=== PATIENT | male | born 1970 | race Caucasian/White ===

== ENCOUNTER → 2018-01-06 | Outpatient (CLI) | payer BC, OTHER ==
[~2018-01-06] MED LIST: PRILOSEC 20 MG20 MG PO; ZANTAC 150MG T150 M1 PO
== END ==
LOC: ULTRA 06:50
DX: R10.11 Right upper quadrant pain (principal)

== ENCOUNTER 2018-08-12 02:18 | Inpatient (IN) | payer OTHER ==
[2018-08-12] VITALS (7 sets, daily range): BP systolic 117–140; BP diastolic 67–93
[~2018-08-12] VITALS: Ht 193 cm; Wt 72.6 kg
[2018-08-12] MEDS ORDERED: ATIVAN0.5 MG PO (02:36)
[2018-08-12 02:53] LABS: HEMOGLOBIN 13.9 gm/dL (14.0-18.0); MCHC 33.8 g/dL (28.0-37.0); MCV 97.7 fL (80.0-100.0); RBC 4.2 mil/uL (4.50-6.00); RDW 14.6 % (10.5-14.5); WBC 4.9 thou/uL (4.0-11.0)
[2018-08-12 02:56] LABS: CALCIUM 9.5 mg/dL (8.5-10.1); CREATININE 0.8 mg/dL (0.7-1.3); POTASSIUM 3.9 mmol/L (3.5-5.1)
[2018-08-12 03:02] LABS: ALBUMIN 3.8 g/dL (3.4-5.0); TOTAL BILIRUBIN 0.3 mg/dL (<0.1-1.0); TOTAL PROTEIN 7.7 g/dL (6.4-8.2)
[2018-08-13 02:33] VITALS: BP 134/87
[2018-08-13 07:36] VITALS: BP 135/82
[2018-08-13 10:10] LABS: AMP/METHAMP Negative (Negative); BARBITURATES Negative (Negative); BENZODIAZEPINES POSITIVE (Negative); COCAINE Negative (Negative); METHADONE Negative (Negative); OPIATES POSITIVE (Negative); PCP Negative (Negative)
[2018-08-13 11:19] VITALS: BP 126/89
[2018-08-13] MEDS ORDERED: VITAMIN B-1100 M2 PO (14:30)
[2018-08-13 15:16] VITALS: BP 126/89
== END 2018-08-13 15:43 | disposition home or self-care (01) | DRG 439 ==
LOC: ER 02:18 → EROBS 03:43 → 3W 03:43 → EROBS 03:43 → 3W 04:27
PROVIDERS: Emergency Medicine; Nurse Practitioner Acute Care
DX: K85.20 Alcohol induced acute pancreatitis without necrosis or infection (principal); F10.239 Alcohol dependence with withdrawal, unspecified; K21.9 Gastro-esophageal reflux disease without esophagitis; F12.90 Cannabis use, unspecified, uncomplicated; F17.210 Nicotine dependence, cigarettes, uncomplicated; F41.9 Anxiety disorder, unspecified; F32.9 Major depressive disorder, single episode, unspecified; Z79.899 Other long term (current) drug therapy
CPT/HCPCS: 10879

== ENCOUNTER 2018-08-29 00:28 | Emergency (ER) | payer OTHER ==
[~2018-08-29] VITALS: Ht 193 cm; Wt 77.1 kg
[~2018-08-29 00:28] MED LIST changes: +ATIVAN0.5 MG PO; +VITAMIN B-1100 M2 PO
[2018-08-29 01:01] LABS: HEMATOCRIT 43.3 % (42.0-52.0); HEMOGLOBIN 14.9 gm/dL (14.0-18.0); MCH 33.9 pg (26.0-34.0); MCHC 34.3 g/dL (28.0-37.0); MCV 98.7 fL (80.0-100.0); PLATELET COUNT 339 thou/uL (150-400); RBC 4.39 mil/uL (4.50-6.00); RDW 14.9 % (10.5-14.5); WBC 4.8 thou/uL (4.0-11.0)
[2018-08-29 01:03] LABS: CALCIUM 8.8 mg/dL (8.5-10.1); CREATININE 0.7 mg/dL (0.7-1.3); POTASSIUM 3.9 mmol/L (3.5-5.1)
[2018-08-29 01:09] LABS: ALBUMIN 3.8 g/dL (3.4-5.0); TOTAL BILIRUBIN 0.4 mg/dL (<0.1-1.0); TOTAL PROTEIN 7.3 g/dL (6.4-8.2)
[2018-08-29 01:58] LABS: ABSOLUTE NEUTROPHILS 2.2 thou/uL (1.4-8.2); ATYPICAL LYMPHS 3 %
[2018-08-29] MEDS ORDERED: ZOFRAN4 MG PO (04:18)
[2018-08-29] MEDS ORDERED: CARAFATE 1 GM TA1 G1 PO (04:18)
[2018-08-29] MEDS ORDERED: PROTONIX40 M1 PO (04:18)
[2018-08-29] MEDS ORDERED: NORCO 5-325 TA1 EACH PO (04:18)
[2018-08-29 04:34] VITALS: BP 118/65
== END 2018-08-29 04:35 | disposition home or self-care (01) ==
LOC: ER 00:28
PROVIDERS: Emergency Medicine
DX: K29.00 Acute gastritis without bleeding (principal); K21.9 Gastro-esophageal reflux disease without esophagitis; F41.9 Anxiety disorder, unspecified; F17.210 Nicotine dependence, cigarettes, uncomplicated

== ENCOUNTER 2018-10-23 03:54 | Emergency (ER) | payer OTHER ==
[~2018-10-23] VITALS: Ht 193 cm; Wt 72.6 kg
[~2018-10-23 03:54] MED LIST changes: +CARAFATE 1 GM TA1 G1 PO; +NORCO 5-325 TA1 EACH PO; +PROTONIX40 M1 PO; +ZOFRAN4 MG PO
[2018-10-23 04:22] LABS: BASOPHILS 1.3 % (0.0-2.0); EOSINOPHILS 0.4 % (0.0-3.0); HEMATOCRIT 38.5 % (42.0-52.0); LYMPHOCYTES 27.4 % (24.0-44.0); MCH 33.3 pg (26.0-34.0); MCHC 33.7 g/dL (28.0-37.0); MCV 98.9 fL (80.0-100.0); MONOCYTES 8.2 % (1.0-8.0); PLATELET COUNT 407 thou/uL (150-400); POLYS 62.7 % (36.0-66.0); RBC 3.89 mil/uL (4.50-6.00); RDW 14.4 % (10.5-14.5); WBC 4.8 thou/uL (4.0-11.0)
[2018-10-23 04:26] LABS: ANION GAP 13 mmol/L (7-16); BUN 8 mg/dL (7-18); CALCIUM 8.6 mg/dL (8.5-10.1); CHLORIDE 102 mmol/L (98-107); CO2 24 mmol/L (21-32); CREATININE 0.7 mg/dL (0.7-1.3); GLUCOSE 175 mg/dL (74-106); POTASSIUM 3.4 mmol/L (3.5-5.1); SODIUM 139 mmol/L (136-145)
[2018-10-23 04:32] LABS: ALBUMIN 3.4 g/dL (3.4-5.0); DIRECT BILIRUBIN < 0.1 mg/dL (<0.1-0.3); LIPASE 522 U/L (73-393); SGOT 31 U/L (15-37); SGPT 21 U/L (30-65); TOTAL BILIRUBIN 0.2 mg/dL (<0.1-1.0); TOTAL PROTEIN 6.9 g/dL (6.4-8.2)
[2018-10-23] MEDS ORDERED: ACETAMINOPHEN-1 EAC1 PO (05:12)
[2018-10-23] MEDS ORDERED: PRILOSEC 20 MG20 MG PO (05:12)
[2018-10-23] MEDS ORDERED: ATIVAN1 MG PO (05:12)
[2018-10-23] MEDS ORDERED: ZOFRAN ODT4 MG DISSOLVE (05:12)
[2018-10-23 05:14] LABS: URINE BILIRUBIN NEGATIVE (Negative); URINE BLOOD NEGATIVE (Negative); URINE CLARITY CLEAR; URINE COLOR YELLOW; URINE GLUCOSE-RANDOM* NEGATIVE (Negative); URINE KETONES 1+ (Negative); URINE LEUKOCYTES NEGATIVE (Negative); URINE NITRITE NEGATIVE (Negative); URINE PROTEIN (DIPSTICK) TRACE (Negative); URINE SPECIFIC GRAVITY >= 1.030 (1.005-1.035); URINE UROBILINOGEN 0.2 E.U./dl (0.2-1.0)
[2018-10-23 05:18] LABS: AMP/METHAMP Negative (Negative); BARBITURATES Negative (Negative); BENZODIAZEPINES Negative (Negative); COCAINE Negative (Negative); METHADONE Negative (Negative); OPIATES POSITIVE (Negative); PCP Negative (Negative)
[2018-10-23 05:25] VITALS: BP 135/87
== END 2018-10-23 05:32 | disposition home or self-care (01) ==
LOC: ER 03:54
PROVIDERS: Emergency Medicine
DX: K85.90 Acute pancreatitis without necrosis or infection, unspecified (principal); F41.9 Anxiety disorder, unspecified; F10.10 Alcohol abuse, uncomplicated; Y90.5 Blood alcohol level of 100-119 mg/100 ml; M41.9 Scoliosis, unspecified; K21.9 Gastro-esophageal reflux disease without esophagitis; F17.210 Nicotine dependence, cigarettes, uncomplicated; Z79.899 Other long term (current) drug therapy

== ENCOUNTER 2018-10-26 09:09 | Inpatient (IN) | payer OTHER ==
[2018-10-26] VITALS (46 sets, daily range): BP systolic 68–127; BP diastolic 36–83
[~2018-10-26] VITALS: Ht 193 cm; Wt 70.3 kg
[~2018-10-26 09:09] MED LIST changes: +ACETAMINOPHEN-1 EAC1 PO; +ATIVAN1 MG PO; +ZOFRAN ODT4 MG DISSOLVE
[2018-10-26 09:21] LABS: ABSOLUTE NEUTROPHILS 7.4 thou/uL (1.4-8.2); BASOPHILS 0.4 % (0.0-2.0); EOSINOPHILS 0.4 % (0.0-3.0); HEMATOCRIT 38.1 % (42.0-52.0); HEMOGLOBIN 12.8 gm/dL (14.0-18.0); LYMPHOCYTES 17.2 % (24.0-44.0); MCH 34.3 pg (26.0-34.0); MCHC 33.6 g/dL (28.0-37.0); MCV 102.1 fL (80.0-100.0); MONOCYTES 10.8 % (1.0-8.0); PLATELET COUNT 258 thou/uL (150-400); POLYS 71.2 % (36.0-66.0); RBC 3.73 mil/uL (4.50-6.00); RDW 14.4 % (10.5-14.5); WBC 10.4 thou/uL (4.0-11.0)
[2018-10-26 09:30] LABS: ANION GAP 21 mmol/L (7-16); BUN 11 mg/dL (7-18); CALCIUM 9.6 mg/dL (8.5-10.1); CHLORIDE 97 mmol/L (98-107); CO2 16 mmol/L (21-32); CREATININE 1.6 mg/dL (0.7-1.3); GLUCOSE 173 mg/dL (74-106); POTASSIUM 3.9 mmol/L (3.5-5.1); SODIUM 134 mmol/L (136-145)
[2018-10-26 09:39] LABS: ALBUMIN 3.8 g/dL (3.4-5.0); SGOT 40 U/L (15-37); SGPT 27 U/L (30-65); TOTAL BILIRUBIN 0.6 mg/dL (<0.1-1.0); TOTAL PROTEIN 7.1 g/dL (6.4-8.2); TROPONIN-I <0.06 ng/mL (<0.06)
--- NOTE | 2018-10-26 09:50 | EKG ---
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 : 1970 Requested By: Viki Up Order Number: [id number] MD: Efren Jenkins Measurements Intervals [place] Rate: 165 P: ID: QRS: 64 QRSD: 81 T: 31 QT: 288 QTc: 477 Interpretive Statements Atrial fibrillation RSR' in V1 or V2, right VCD ST depression, probably rate related Borderline prolonged QT interval Compared to ECG 08/08/2010 16:04:35 atrial fibrillation has replaced sinus rhythm Electronically Signed On 10-26-2018 9:49:56 PHYSICAL THERAPY INSTRUCTOR by Efren Jenkins [email or web address] ��������������������������������������������� <ELECTRONICALLY SIGNED> ���������������������������������������� By: Efren Jenkins MD, [facility] ��������������������������������������������� 10/26/18 0949 3 3 Efren Jenkins MD, [facility] /EPI
[2018-10-26 10:48] LABS: URINE BILIRUBIN NEGATIVE (Negative); URINE BLOOD NEGATIVE (Negative); URINE CLARITY CLEAR; URINE COLOR YELLOW; URINE GLUCOSE-RANDOM* NEGATIVE (Negative); URINE KETONES TRACE (Negative); URINE LEUKOCYTES-REFLEX NEGATIVE (Negative); URINE NITRITE-REFLEX NEGATIVE (Negative); URINE PROTEIN (DIPSTICK) NEGATIVE (Negative); URINE UROBILINOGEN 0.2 E.U./dl (0.2-1.0)
[2018-10-26 10:59] LABS: AMP/METHAMP Negative (Negative); BARBITURATES Negative (Negative); BENZODIAZEPINES Negative (Negative); COCAINE Negative (Negative); METHADONE Negative (Negative); OPIATES Negative (Negative); PCP Negative (Negative)
[2018-10-26 13:47] LABS: FOLIC ACID 14.2 ng/mL (8.6-58.9)
--- NOTE | 2018-10-26 15:39 | 2DMMODE ---
[facility] [employer] [address] 2 D/M-MODE ECHOCARDIOGRAM Name: LAKSHMI WEI Room #: 243-P [facility] IN ..#: [id number] ������������� Admission: 10/26/18 ������������� Attend Phys: Kp Pressley, Discharge: ��� ������������� ��� Date of : 66 Date of Service: 10/26/18 1539 �� Report #: [id number] �������� ��������������������������������������������[id number] THIS REPORT FOR: //name// APPROVED REPORT Study performed: 10/26/2018 14:49:43 EXAM: Comprehensive 2D, Doppler, and color-flow Echocardiogram Patient Location: ICU Status: routine BSA: 1.91 HR: 243 bpm BP: 97/61 mmHg Rhythm: Atrial Fibrillation Other Information Study Quality: Adequate Indications Atrial Fibrillation Left Ventricle The left ventricle is normal size. Regional wall motion is not well visualized but grossly normal. There is normal left ventricular wall thickness. The left ventricular systolic function is normal. The left ventricular ejection fraction is within the normal range. LVEF is 55-60%. Right Ventricle The right ventricle is normal size. The right ventricular systolic function is normal. Atria The left atrium size is normal. The right atrium size is normal. Aortic Valve The aortic valve is not well visualized, mildly calcified. Mitral Valve The mitral valve is normal in structure. Tricuspid Valve The tricuspid valve is normal in structure. [facility] [place] [address] 2 D/M-MODE ECHOCARDIOGRAM Name: LAKSHMI WEI Room #: 243-P ADM IN M.R.#: [id number] ������������� Admission: 10/26/18 ������������� Attend Phys: Kp Pressley, Discharge: ��� ������������� ��� Date of : 66 Date of Service: 10/26/18 1539 �� Report #: [id number] �������� ��������������������������������������������[id number] Pulmonic Valve Pulmonic valve is not well visualized. Great Vessels The aortic root is normal in size. The inferior vena cava is not well visualized. Pericardium There is no pericardial effusion. <Conclusion> Limited and abbreviated study The left ventricular systolic function is normal. LVEF is 55-60%. The aortic valve is not well visualized, mildly calcified. The mitral valve is normal in structure. There is no pericardial effusion. ��������������������������������������������� <ELECTRONICALLY SIGNED> ���������������������������������������� By: Efren Jenkins MD, FACC ��������������������������������������������� 10/26/18 1539 38 38 Efren Jenkins MD, FACC /INF
--- NOTE | 2018-10-26 19:51 | NUR ---
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 ON ROOM AIR, TOLERATING DIET. CIWA AND BLOOD SUGARS MONITORED. PATIENT UPDATED ON THE PLAN OF CARE. NO SIGNS OF ACUTE DISTRESS NOTED AT THIS TIME. WILL CONTINUE TO MONITOR.
[2018-10-27] VITALS (43 sets, daily range): BP systolic 92–140; BP diastolic 56–96
[2018-10-27 00:08] LABS: GLYCOHEMOGLOBIN (HGB A1C) 5.6 % (4.8-5.6)
[2018-10-27 05:15] LABS: ABSOLUTE NEUTROPHILS 2.7 thou/uL (1.4-8.2); BASOPHILS 0.5 % (0.0-2.0); EOSINOPHILS 2.2 % (0.0-3.0); HEMATOCRIT 32.9 % (42.0-52.0); HEMOGLOBIN 11.1 gm/dL (14.0-18.0); LYMPHOCYTES 29.5 % (24.0-44.0); MCH 34.2 pg (26.0-34.0); MCHC 33.7 g/dL (28.0-37.0); MCV 101.6 fL (80.0-100.0); MONOCYTES 8.8 % (1.0-8.0); PLATELET COUNT 189 thou/uL (150-400); RBC 3.24 mil/uL (4.50-6.00); RDW 14.5 % (10.5-14.5); WBC 4.6 thou/uL (4.0-11.0)
--- NOTE | 2018-10-27 05:23 | NUR ---
PT RESTING IN BED. REQUIRED DOSES OF ATIVAN AND PAIN MEDICATION THROUGHOUT SHIFT. PT REMAINS AFIB ON MONITOR. PT AFEBRILE. PT Q4H CIWA DOCUMENTATION AND FOLLOWING PROTOCOL. PT REMAINS ON RA. AM LABS TO BE REVIEWED.
[2018-10-27 05:29] LABS: AMYLASE 57 U/L (25-115); CALCIUM 7.9 mg/dL (8.5-10.1); CHOLESTEROL 142 mg/dL (<200); CREATININE 0.7 mg/dL (0.7-1.3); HDL CHOLESTEROL 43 mg/dL (>40); LDL CHOLESTEROL 80 mg/dL (<100); LIPASE 329 U/L (73-393); MAGNESIUM 1.9 mg/dL (1.8-2.4); POTASSIUM 3.7 mmol/L (3.5-5.1); TC:HDL 3.3 Ratio (Not establshd); TRIGLYCERIDE 98 mg/dL (<150); VLDL 20 mg/dL (<40)
[2018-10-27 05:40] LABS: SERUM ASSESSMENT Clear
--- NOTE | 2018-10-27 08:58 | 2DMMODE ---
[facility] [employer] [place] [address] 2 D/M-MODE ECHOCARDIOGRAM Name: LAKSHMI WEI W Room #: 243-P [facility].#: [id number] ������������� Admission: 10/26/18 ������������� Attend Phys: Kp Pressley, Discharge: ��� ������������� ��� Date of : 66 Date of Service: 10/27/18 0858 �� Report #: [id number] �������� ��������������������������������������������[id number] THIS REPORT FOR: //name// APPROVED REPORT Study performed: 10/27/2018 08:17:32 EXAM: Comprehensive 2D, Doppler, and color-flow Echocardiogram Patient Location: ICU Room #: 243 Status: routine BSA: 1.91 HR: 100 bpm BP: 108/63 mmHg Rhythm: Atrial Fibrillation Other Information Study Quality: Good Indications Atrial Fibrillation 2D Dimensions RVDd: 30.15 mm IVSd: 11.17 (7-11mm) LVOT Diam: 23.55 (18-24mm) LVDd: 45.19 mm PWd: 10.47 (7-11mm) Ascending Ao: 27.63 (22-36mm) LVDs: 32.60 (25-40mm) Aortic Root: 31.86 mm IVC: 18.00 mm Volumes Left Atrial Volume (Systole) Single Plane 4CH: 32.53 mL Single Plane 2CH: 56.96 mL LA ESV Index: 25.00 mL/m2 Aortic Valve AoV Peak Arvin.: 1.16 m/s AO Peak Gr.: 5.39 mmHg LVOT Max P.17 mmHg LVOT Max V: 0.74 m/s JORJE Vmax: 2.76 cm2 Pulmonary Valve PV Peak Arvin.: 0.75 m/s PV Peak Gr.: 2.25 mmHg Left Ventricle [facility] [address] [place] [address] 2 D/M-MODE ECHOCARDIOGRAM Name: LAKSHMI WEI Room [facility]: [facility]#: [id number] ������������� Admission: 10/26/18 ������������� Attend Phys: Kp Pressley, Discharge: ��� ������������� ��� Date of : 66 Date of Service: 10/27/18 0858 �� Report #: [id number] �������� ��������������������������������������������[id number] The left ventricle is normal size. There is normal LV segmental wall motion. There is normal left ventricular wall thickness. Left ventricular systolic function is at the lower limits of normal LVEF is 50%. This study is not technically sufficient to allow evaluation of the LV diastolic function due to atrial fibrillation. Right Ventricle The right ventricle is normal size. The right ventricular systolic function is normal. Atria The left atrium size is normal. The right atrium size is normal. Aortic Valve The aortic valve is normal in structure. Trace to mild aortic regurgitation. There is no aortic valvular stenosis. Mitral Valve The mitral valve is normal in structure. Mild mitral regurgitation. No evidence of mitral valve stenosis. Tricuspid Valve The tricuspid valve is normal in structure. There is no tricuspid valve regurgitation noted. Pulmonic Valve The pulmonary valve is normal in structure. Mild pulmonic regurgitation. Great Vessels The aortic root is normal in size. IVC is normal in size and collapses <50% with inspiration. Pericardium There is no pericardial effusion. <Conclusion> Left ventricular systolic function is at the lower limits of normal LVEF is 50%. The aortic valve is normal in structure. Trace to mild aortic regurgitation, no stenosis. The mitral valve is normal in structure. Mild mitral regurgitation. [facility] [place] [address] 2 D/M-MODE ECHOCARDIOGRAM Name: SANJUANALAKSHMI Room #: 243-P [facility] IN ..#: [id number] ������������� Admission: 10/26/18 ������������� Attend Phys: Kp Pressley, Discharge: ��� ������������� ��� Date of : 66 Date of Service: 10/27/18857 �� Report #: [id number] �������� ��������������������������������������������[id number] Pulmonary artery pressure could not be reliably ascertained There is no pericardial effusion. ��������������������������������������������� <ELECTRONICALLY SIGNED> ���������������������������������������� By: Efren Jenkins MD, FACC ��������������������������������������������� 10/27/18857 7 7 Efren Jenkins MD, FACC /INF
--- NOTE | 2018-10-27 18:07 | NUR ---
PATIENT ALERT AND ORIENTED X4, PAIN MILDLY CONTROLLED WITH MEDICATION. 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 ON ROOM AIR, TOLERATING DIET. CIWA AND BLOOD SUGAR MONITORED. PATIENT AND FAMILY UPDATED ON THE PLAN OF CARE. NO SIGNS OF ACUTE DISTRESS NOTED AT THIS TIME. WILL CONTINUE TO MONITOR.
[2018-10-28] VITALS (19 sets, daily range): BP systolic 108–146; BP diastolic 57–108
--- NOTE | 2018-10-28 06:44 | NUR ---
Pt a/o x 4. RA. CIWA scores ranging from 2-10. C/o RLQ pain. Meds given per order regarding appropriate CIWA score and pain level. Frequent urination. HR in 120s-150s upon minimal exertion, non-sustained. HR in high 90s to low 100s when rest at ease. A-fib on monitor. VSS. Bed alarm on. Seizure and fall precautions in place. Call light within reach.
--- NOTE | 2018-10-28 14:00 | NUR ---
ORDERS RECEIVED FOR LT ANKLE STRENGTHENING DUE TO FOOT DROP. SPOKE WITH Pt AND INSTRUCTED TO CONTINUE WITH THE ANKLE ROM EXERCISES HE HAD ALREADY BEEN DOING WELL HEELCORD STRETCHING. Pt HAS BEEN GETTING UP WITHOUT DIFFICULTY. Pt HAS AROM OF LT ANKLE WITH STRENGTH GRADED AT 3-/5. FORMAL P.T. EVAL DEFERRED Pt IS PATIENT PAY. NURSING AWARE
--- NOTE | 2018-10-28 16:20 | NUR ---
ASSUMED CARE OF PT AT 0700 THIS SHIFT. PT HAS BEEN COOPERATIVE, HAS HAD PAIN THIS SHIFT. PT HAS ANXIETY, HOWEVER SEEMS TO BE COPING BETTER, MUCH MORE CALM THIS SHIFT. PT'S HR STILL >150-160 WITH EXCERTION, CARDIOLOGY IS AWARE. PT HAS TRANFER ORDERS OUT OF ICU. ASSESSMENTS ARE DOCUMENTED. PT HAS HAD A VISITOR, EDUCATION WAS PROVIDED. PLAN OF CARE IS TO TRANSFER PT OUT OF ICU THIS SHIFT. REPORT CALLED IN TO 3-WEST RN, PT TRANFERED OUT WITH ALL BELONGINGS.
--- NOTE | 2018-10-28 17:07 | NUR ---
CM ASSESSMENT: ADMITTED FOR ETOH WITHDRAWAL. PT WAS HERE IN 07/2018 WITH SAME AND WAS PROVIDED RESOURCES FOR [facility] AND ETOH TREATMENT FOLLOW UP AT THAT TIME. NOW ON 3W. PCP IS VIDA.
--- NOTE | 2018-10-29 04:08 | NUR ---
PATIENT IS SLOWLY PROGRESSING IN HIS CARE PLAN. VITAL SIGNS STABLE WITH PATIENT HAVING NO COMPLAINTS OF NAUSEA. PATIENT DID COMPLAIN OF PAIN IN ABDOMEN FREQUENTLY WHICH WAS TREATED WITH MEDICATIONS. FULLY ORIENTED, PATIENT WAS ABLE TO CALL APPROPRIATELY FOR REQUESTS AND PARTICIPATE IN CARE PLAN. PATIENT DID DISPLAY MARKED ANXIETY. CIWA PER PROTOCOL WITH PATIENT SCORING AROUND FOUR THROUGHOUT SHIFT. PATIENT EDUCATED ON DANGERS OF ALCOHOL AND ADVISED TO JOIN AA. UP MULTIPLE TIMES WITH ASSISTANCE INCIDENT FREE. CONTINUE PLAN OF CARE.
[2018-10-29 04:14] VITALS: BP 129/82
[2018-10-29 07:25] VITALS: BP 125/85
[2018-10-29 11:05] VITALS: BP 119/85
[2018-10-29 15:01] VITALS: BP 106/72
[2018-10-29 19:32] VITALS: BP 119/80
--- NOTE | 2018-10-29 19:40 | NUR ---
PATIENT NOT DISCHARGED TODAY EBONI HE WAS TACHYARDIC THIS AFTERNOON. CARDIOLOGY ADJUSTED CARDIZEM AND HR HAS BEEN BELOW 70 IN THE LAST FEW HOURS. HE HAS REQUESTED PRN PAIN MED OR ANXIETY MED ALL DAY. AMBULATES WITH STEADY GAIT. APPETITE GOOD. WILL CONT WITH PLAN OF CARE.
[2018-10-30 04:14] VITALS: BP 111/81
--- NOTE | 2018-10-30 05:01 | NUR ---
he is talkative tonight and he does admit that he is an alcoholic. he named a number of community resources available, he just isnt sure how he will get into a center soon. we talked about his risk of stroke with his diagnosis of afib. he is accepting of education regarding his heart arrhythmia. he continues to have abdominal pain and is getting effective control of his pain. careplan reviewed.
[2018-10-30 07:18] VITALS: BP 128/86
[2018-10-30] MEDS ORDERED: CELEXA 20 MG TA20 MG PO (10:46)
[2018-10-30] MEDS ORDERED: VITAMIN B-1100 M2 PO (10:46)
[2018-10-30] MEDS ORDERED: CARDIZEM CD240 MG PO (10:46)
[2018-10-30 11:12] VITALS: BP 128/86
--- NOTE | 2018-10-30 12:06 | NUR ---
PATIENT WILL BE DISCHARGED AT THIS TIME. HE IS ALERT ORIENTED X4. AMBULATES WITH NO DIFFICULTY. PLEASANT. NO EPISODES OF WITHDRAWALS NOTED.
== END 2018-10-30 12:07 | disposition home or self-care (01) | DRG 100 ==
LOC: ER 09:09 → ICU 11:07 → EROBS 11:07 → ICU 13:14 → 3W 10-28 16:00
PROVIDERS: Internal Medicine Cardiovascular Disease; Nurse Practitioner; Student in an Organized Health Care Education/Training Program; ADMIT Internal Medicine
DX: R56.9 Unspecified convulsions (principal); K85.20 Alcohol induced acute pancreatitis without necrosis or infection; E87.2 Acidosis; N17.9 Acute kidney failure, unspecified; I48.1 Persistent atrial fibrillation; F10.231 Alcohol dependence with withdrawal delirium; K21.9 Gastro-esophageal reflux disease without esophagitis; F41.9 Anxiety disorder, unspecified; S01.01XA Laceration without foreign body of scalp, initial encounter; X58.XXXA Exposure to other specified factors, initial encounter; R73.9 Hyperglycemia, unspecified; I10 Essential (primary) hypertension; M21.372 Foot drop, left foot; F32.9 Major depressive disorder, single episode, unspecified; F17.210 Nicotine dependence, cigarettes, uncomplicated; Y93.89 Activity, other specified; Y92.89 Other specified places as the place of occurrence of the external cause; Y99.8 Other external cause status; Z79.899 Other long term (current) drug therapy; Z81.8 Family history of other mental and behavioral disorders; Z82.0 Family history of epilepsy and other diseases of the nervous system
CPT/HCPCS: 10078; 10779